=== PATIENT | female | born 1970 | race American Indian/Alaskan Native ===

== ENCOUNTER 2023-03-08 09:53 | Emergency (ER) | payer SELFPAY ==
[2023-03-08] MEDS ORDERED: fentaNYL 50 mcg/mL 1 mL Vial ONE (10:38)
[2023-03-08] MEDS ORDERED: Midazolam HCl 5 mg/ml Vial ONE (10:39)
== END 2023-03-08 13:00 | disposition home or self-care (01) ==
LOC: BURERS 09:53
DX: S43.015A Anterior dislocation of left humerus, initial encounter (principal); I10 Essential (primary) hypertension; F17.200 Nicotine dependence, unspecified, uncomplicated; W18.30XA Fall on same level, unspecified, initial encounter
CPT/HCPCS: 23650; 94760; 96374; 96375; 99152; J2250; J3010